=== PATIENT | male | born 1940 | race American Indian/Alaskan Native ===

== ENCOUNTER 2017-10-26 06:08 | Day surgery (SDC) | payer MEDICARE ==
[~2017-10-26 06:08] MED LIST: KENALOG-40 IM ONE; TETRACAINE 0.5% OD PRN
[2017-10-26] MEDS ORDERED: KENALOG-40 ONE (06:35)
[2017-10-26] MEDS: AK-Dilate OD SCH ×3 (06:40→07:01)
[2017-10-26] MEDS: VIGAMOX OD SCH ×3 (06:40→07:01)
[2017-10-26] MEDS: MYDRIACYL OD SCH ×3 (06:40→07:01)
[2017-10-26] MEDS ORDERED: SUBLIMAZE ONE (07:12)
[2017-10-26] MEDS ORDERED: VERSED ONE (07:13)
--- NOTE | 2017-10-26 07:58 | Anesthesia Consultation ---
Anesthesia Consult and Med Hx Date of service: 10/26/17 - Airway Anesthetic Teeth Evaluation: Good ROM Head & Neck: Adequate Mental/Hyoid Distance: Adequate Intubation Access Assessment: Probably Good - Pulmonary Exam CTA: Yes - Cardiac Exam Cardiac Exam: RRR - Pre-Operative Health Status ASA Pre-Surgery Classification: ASA4 Proposed Anesthetic Plan: MAC - Cardiovascular System Hx Hypertension: Yes (OVER 10 YEARS) - Central Nervous System Hx Psychiatric Problems: No - Other Systems Hx Alcohol Use: No Hx Substance Use: No Hx Cancer: No
[2017-10-26] MEDS ORDERED: PERCOCET 5/325 PO PRN (07:59)
--- NOTE | 2017-10-26 07:59 | Anesthesia Day of Surgery ---
Anesthesia Day of Surgery - Day of Surgery Patient Examined: Yes Patient H&P Reviewed: Yes Patient is NPO: Yes Beta Blockers: No Cardiac Clearance: No Pulmonary Clearance: No
[2017-10-26] MEDS ORDERED: DECADRON ONE (08:19)
[2017-10-26] MEDS ORDERED: XYLOCAINE 1% MPF 5 mL IJ ONE (08:22)
[2017-10-26] MEDS ORDERED: ADRENALINE P/F IV ONE (08:23)
[2017-10-26] MEDS ORDERED: VISCOAT IO ONE (08:40)
[2017-10-26] MEDS ORDERED: KENALOG-40 IM ONE (08:51)
[2017-10-26] MEDS ORDERED: MIOSTAT OD ONE (08:55)
[2017-10-26] MEDS ORDERED: PRED FORTE 1% OD SCH (10:00)
--- NOTE | 2017-10-26 10:01 | Operative Report ---
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 OPTO MECHANICAL ENGINEER SURGEON: None Lens: OA60 22.0 ANESTHESIA: Monitored anesthesia care in combination with topical and intracameral anesthesia because of the established specific risk of reflux, arrhythmias, or anxiety attacks associated with ocular manipulation, as well as the difficulty of the fire eater to manage such potentially catastrophic events while simultaneously attempting to complete the surgical procedure and was deemed necessary for the patient's safety to have an Hold Worker present during the procedure whenever possible. An Hold Worker was utilized to regulate the intravenous sedation of the patient so the patient was cooperative yet not asleep in order for the patient to successfully maintain fixation of the eye on the operating light of the microscope. COMPLICATIONS: No surgical complications No blood loss. ALLERGIES: N known drug allergies PROGNOSIS: Excellent INDICATIONS FOR SURGERY: The patient is undergoing surgery in the hopes of eliminating or improving these visual difficulties. PROCEDURE: After arriving at the surgery center, the patient was given topical anesthetic and dilating drops, as noted in the record. The patient was then taken into the operating room and given more anesthetic drops. The eyelids , lashes, and lid margins were scrubbed with Betadine solution, and the patient was draped. The Nurse Hold Worker administered IV sedation and monitored the patient during the procedure. The eye was then fixated with a 0.12, and a stab incision was made in the peripheral clear cornea into the anterior chamber. After these were made I started bleeding. This was made on my left side. Viscoelastic was next used to fill the anterior chamber. The eye was once again fixated with the 0.12 forceps and a keratome was used make an incision in clear cornea peripherally on my right hand side temporally. The eye was found to be very soft because of the presence of a tube shunt. The iris was synechaied to the anterior capsule of the lens, Crogan hook and Sinskey hook were used to break the synechiae. 1 1000 epinephrine was injected into the eye. The pupil remained at about 3 mm in size. Malugyan ring 6.25 mm was inserted. The capsule forceps were used to open the central anterior capsule and then make a continuous round capsulotomy. Hydrodissection was carried out utilizing a cannula and balanced salt solution to delineate the cortical material from the capsule and the nucleus from the cortical material. The phaco tip was introduced into the eye and used to remove the anterior cortical material in the area of the capsulotomy. Then the phaco tip was buried into the nucleus, and a chopping instrument was introduced into the eye and used to provide countertraction in the nucleus between this instrument and the phaco tip fracturing the nucleus. This procedure was repeated multiple times, providing multiple small segments of the lens, and then the phaco tip was used to remove each of these segments. An I/A tip was then used to remove the remaining cortex. The anterior chamber was refilled with viscoelastic. An one-piece, acrylic intraocular lens was then placed into an inserting cartridge. The tip of the inserting cartridge was introduced into the keratome incision and into the anterior chamber. The implant was gently advanced through the cartridge and into the eye, where it unfolded, and both haptics were placed in the capsular bag, where it centered nicely and appeared to be well fixated. After placement of the intraocular lens, the I~and~A handpiece was placed back into the eye and used to remove the viscoelastic, including viscoelastic that was behind the optic of the intraocular lens. The anterior chamber was then filled with balanced salt solution, and hydration of the wound was used to cause swelling of the wound and more appropriate watertight closure. A 10-0 nylon suture was placed, Miochol Kenalog were injected. When the wound was found to be firm, the patient was asked to comment on how bright the light was. If there was no light perception at all or if the light was substantially dimmer than during the rest of the surgery, the amount of fluid in the eye was decompressed to lower the intraocular pressure until the patient could see the bright light again. This was done to avoid any damage or decreased blood flow to the optic nerve. MEDICATIONS APPLIED AT END OF SURGERY: One drop of Pred Forte and Vigamox The patient was given a shield to wear at night and was instructed not to rub or push on the eye. DISCHARGE SUMMARY: The patient was released in stable condition. The patient and those with the patient were given a written sheet of postoperative instructions and counseling on any abnormal laboratory studies. The patient is to see us tomorrow for follow-up in the office and is to call immediately for any difficulties. Daisy Saavedra M.D. Date
--- NOTE | 2017-10-26 10:03 | Short Stay Summary ---
Short Stay Documentation Date of service: 10/26/17 - History H&P: obtained from office - Allergies and Medications Current Medications: Allergies No Known Allergies Allergy (Verified 10/25/17 10:35) Home Medications Medication Instructions Recorded Confirmed Last Taken Type Ascorbic Acid [Vitamin C] 500 mg PO QDAY 10/25/17 10/26/17 10/25/17 09:00 History Aspirin [Lo-Dose Aspirin EC] 81 mg PO DAILY 10/25/17 10/26/17 10/22/17 09:00 History Brimonidine/Timolol 0.2-0.5% 1 drop OP DAILY 10/25/17 10/26/17 10/25/17 09:00 History [Combigan 0.2-0.5%] Lycopene 10 mg PO DAILY 10/25/17 10/26/17 10/25/17 09:00 History Multivit-Mins/Iron/Folic/Lycop 1 each PO DAILY 10/25/17 10/26/17 10/25/17 09:00 History [Men Under 50 Multivitamin Tab] Rosuvastatin (Nf) [Crestor] 5 mg PO DAILY 10/25/17 10/26/17 10/25/17 09:00 History Telmisartan/Hydrochlorothiazid 1 each PO DAILY 10/25/17 10/26/17 10/25/17 09:00 History [Telmisartan-Hctz 80-12.5 mg Tb] Terazosin HCl 10 mg PO DAILY 10/25/17 10/26/17 10/25/17 20:00 History Active Medications Moxifloxacin HCl (Vigamox) 1 drops OD Q5MIN [facility] Stop: 10/28/17 06:01 Last Admin: 10/26/17 07:01 Dose: 1 drops Oxycodone/Acetaminophen (Percocet 5/325) 1 tab PO ONCE PRN PRN Reason: Pain, Moderate (4-6) Stop: 10/26/17 13:00 Phenylephrine HCl (Ak-Dilate) 1 drops OD Q5MIN [facility] Stop: 10/28/17 06:01 Last Admin: 10/26/17 07:01 Dose: 1 drops Prednisolone Acetate (Pred Forte 1%) 1 drops OD QID [facility] Stop: 10/26/17 12:00 Last Admin: 10/26/17 09:30 Dose: 1 drops Tetracaine HCl (Tetracaine 0.5%) 1 drops OD Q5M PRN PRN Reason: NUMBING DROP Last Admin: 10/26/17 06:40 Dose: 1 drops Tropicamide (Mydriacyl) 1 drops OD Q5MIN [facility] Stop: 10/28/17 06:01 Last Admin: 10/26/17 07:01 Dose: 1 drops - Brief post op/procedure progress note Date of procedure: 10/26/17 Pre-op diagnosis: inflammatory cataract posterior synechiae right eye Post-op diagnosis: same Procedure: Phacoemulsification with intraocular lens insertion Synechiolysis right eye Anesthesia: MAC, local Surgeon: FRANCES TORRES Estimated blood loss: minimal Condition: stable - Disposition Condition at discharge: Good Disposition: DC-01 TO HOME OR SELFCARE - Discharge Diagnoses (1) Cataract associated with other syndromes Status: Resolved (2) Posterior synechiae (iris), right eye Status: Resolved Short Stay Discharge Plan Follow up with: SARAN KEATING JR, MD [Primary Care Provider] - 7 Days Forms: Outpatient Surgery DC Inst.
[2017-10-26 14:46] VITALS: BP 141/79
--- NOTE | 2017-10-26 14:51 | Post Anesthesia Evaluation ---
- Post Anesthesia Evaluation Patient Participated: Yes Airway Patent: Yes Stable Respiratory Function: Yes Nausea/Vomiting: No Temp > 96.8F: Yes Pain Manageable: Yes Adequeate Hydration: Yes Anesthesia Complications: No Block Receding Appropriately: No Patient on Ventilator: No
== END 2017-10-26 09:50 | disposition home or self-care (01) ==
LOC: OR 06:08
DX: H26.8 Other specified cataract (principal); H21.541 Posterior synechiae (iris), right eye
CPT/HCPCS: 65870; 66982; J0171; J1100; J2250; J3010; J3301; V2632

== ENCOUNTER 2017-11-09 06:09 | Day surgery (SDC) | payer MEDICARE ==
[~2017-11-09 06:09] MED LIST changes: -KENALOG-40 IM ONE; -TETRACAINE 0.5% OD PRN; +TETRACAINE 0.5% OS PRN
[2017-11-09] MEDS ORDERED: NACL BACTERIOSTATIC INFILTRATI ONE (06:18)
[2017-11-09] MEDS: MYDRIACYL OS SCH ×3 (06:39→06:53)
[2017-11-09] MEDS: VIGAMOX OS SCH ×3 (06:39→06:53)
[2017-11-09] MEDS: AK-Dilate OS SCH ×3 (06:39→06:53)
[2017-11-09] MEDS ORDERED: VERSED ONE (07:15)
--- NOTE | 2017-11-09 07:32 | Anesthesia Consultation ---
Anesthesia Consult and Med Hx Date of service: 11/09/17 - Airway Anesthetic Teeth Evaluation: Poor ROM Head & Neck: Adequate Mental/Hyoid Distance: Adequate Mallampati Class: Class I Intubation Access Assessment: Good - Pulmonary Exam CTA: Yes - Cardiac Exam Cardiac Exam: RRR - Pre-Operative Health Status ASA Pre-Surgery Classification: ASA2 Proposed Anesthetic Plan: Local, MAC - Cardiovascular System Hx Hypertension: Yes (10 YEARS)
--- NOTE | 2017-11-09 07:52 | Anesthesia Day of Surgery ---
Anesthesia Day of Surgery - Day of Surgery Patient Examined: Yes Patient H&P Reviewed: Yes Patient is NPO: Yes
[2017-11-09] MEDS ORDERED: ADRENALINE P/F IV ONE (08:21)
--- NOTE | 2017-11-09 08:38 | Short Stay Summary ---
Short Stay Documentation Date of service: 11/09/17 - History H&P: obtained from office - Allergies and Medications Current Medications: Allergies No Known Allergies Allergy (Verified 11/03/17 12:40) Home Medications Medication Instructions Recorded Confirmed Last Taken Type Ascorbic Acid [Vitamin C] 500 mg PO QDAY 10/25/17 11/09/17 11/08/17 History Aspirin [Lo-Dose Aspirin EC] 81 mg PO DAILY 10/25/17 11/09/17 11/06/17 History Brimonidine/Timolol 0.2-0.5% 1 drop OP DAILY 10/25/17 11/03/17 11/08/17 History [Combigan 0.2-0.5%] Lycopene 10 mg PO DAILY 10/25/17 11/09/17 11/08/17 History Multivit-Mins/Iron/Folic/Lycop 1 each PO DAILY 10/25/17 11/09/17 11/06/17 History [Men Under 50 Multivitamin Tab] Rosuvastatin (Nf) [Crestor] 5 mg PO DAILY 10/25/17 11/03/17 11/08/17 History Telmisartan/Hydrochlorothiazid 1 each PO DAILY 10/25/17 11/03/17 11/08/17 History [Telmisartan-Hctz 80-12.5 mg Tb] Terazosin HCl 10 mg PO DAILY 10/25/17 11/03/17 11/08/17 History Calcium Carbonate [Calcium] 600 mg PO 1XW 11/09/17 11/09/17 11/06/17 History Cholecalciferol (Vitamin D3) 1,000 unit PO DAILY 11/09/17 11/09/17 11/08/17 History [Vitamin D3] Folic Acid [Folvite] 1 tab PO DAILY 11/09/17 11/09/17 11/08/17 History Methotrexate(Dose Weekly Only) 3 tab PO 1XW 11/09/17 11/09/17 11/04/17 History amLODIPine [Norvasc] 10 mg PO DAILY 11/09/17 11/09/17 11/08/17 History prednisoLONE ACETATE 1%(NF) [Pred 1 drop OU DAILY 11/09/17 11/09/17 11/08/17 History Forte 1%(Nf)] Active Medications Moxifloxacin HCl (Vigamox) 1 drops OS Q5MIN [facility] Stop: 11/11/17 06:01 Last Admin: 11/09/17 06:53 Dose: 1 drops Phenylephrine HCl (Ak-Dilate) 1 drops OS Q5MIN [facility] Stop: 11/11/17 06:01 Last Admin: 11/09/17 06:53 Dose: 1 drops Prednisolone Acetate (Pred Forte 1%) 1 drops OS QID [facility] Tetracaine HCl (Tetracaine 0.5%) 1 drops OS Q5M PRN PRN Reason: Anesthesia Last Admin: 11/09/17 06:38 Dose: 1 drops Tropicamide (Mydriacyl) 1 drops OS Q5MIN [facility] Stop: 11/11/17 06:01 Last Admin: 11/09/17 06:53 Dose: 1 drops - Brief post op/procedure progress note Date of procedure: 11/09/17 Pre-op diagnosis: inflammatory cataract left eye Post-op diagnosis: same Procedure: phaco iol os Anesthesia: MAC, local Surgeon: FRANCES TORRES Estimated blood loss: none Pathology: none Condition: stable - Disposition Condition at discharge: Good Disposition: DC-01 TO HOME OR SELFCARE - Discharge Diagnoses (1) Cataract associated with other syndromes Status: Resolved Short Stay Discharge Plan Follow up with: SARAN KEATING JR, MD [Primary Care Provider] - 7 Days
[2017-11-09] MEDS ORDERED: PRED FORTE 1% OS SCH (10:00)
--- NOTE | 2017-11-09 11:34 | Operative Report ---
Operative Report Operative Report: PATIENT'S NAME: DATE OF : DATE OF SURGERY: 11/09/2017 PREOPERATIVE DIAGNOSIS: Cataract left eye POSTOPERATIVE DIAGNOSIS: Same OPERATIVE PROCEDURE: Phacoemulsification with intraocular lens implantation, left eye SURGEON: Daisy Saavedra M.D. SENIOR BIOSTATISTICIAN/GROUP LEADER SURGEON: Anne Marie Lens: AO60 220. D ANESTHESIA: Monitored anesthesia care in combination with topical and intracameral anesthesia because of the established specific risk of reflux, arrhythmias, or anxiety attacks associated with ocular manipulation, as well as the difficulty of the glue specialty supervisor to manage such potentially catastrophic events while simultaneously attempting to complete the surgical procedure and was deemed necessary for the patient's safety to have an Camera Person present during the procedure whenever possible. An Camera Person was utilized to regulate the intravenous sedation of the patient so the patient was cooperative yet not asleep in order for the patient to successfully maintain fixation of the eye on the operating light of the microscope. COMPLICATIONS: No surgical complications No blood loss. ALLERGIES: N known drug allergies PROGNOSIS: Excellent INDICATIONS FOR SURGERY: The patient is undergoing surgery in the hopes of eliminating or improving these visual difficulties. PROCEDURE: After arriving at the surgery center, the patient was given topical anesthetic and dilating drops, as noted in the record. The patient was then taken into the operating room and given more anesthetic drops. The eyelids , lashes, and lid margins were scrubbed with Betadine solution, and the patient was draped. The Nurse Camera Person administered IV sedation and monitored the patient during the procedure. The eye was then fixated with a 0.12, and a stab incision was made in the peripheral clear cornea into the anterior chamber. This was made on my left side. Viscoelastic was next used to fill the anterior chamber. The eye was once again fixated with the 0.12 forceps and a keratome was used make an incision in clear cornea peripherally on my right hand side temporally. The capsule forceps were used to open the central anterior capsule and then make a continuous round capsulotomy. Hydrodissection was carried out utilizing a cannula and balanced salt solution to delineate the cortical material from the capsule and the nucleus from the cortical material. The phaco tip was introduced into the eye and used to remove the anterior cortical material in the area of the capsulotomy. Then the phaco tip was buried into the nucleus, and a chopping instrument was introduced into the eye and used to provide countertraction in the nucleus between this instrument and the phaco tip fracturing the nucleus. This procedure was repeated multiple times, providing multiple small segments of the lens, and then the phaco tip was used to remove each of these segments. An I/A tip was then used to remove the remaining cortex. The anterior chamber was refilled with viscoelastic. An one-piece, acrylic intraocular lens was then placed into an inserting cartridge. The tip of the inserting cartridge was introduced into the keratome incision and into the anterior chamber. The implant was gently advanced through the cartridge and into the eye, where it unfolded, and both haptics were placed in the capsular bag, where it centered nicely and appeared to be well fixated. After placement of the intraocular lens, the I~and~A handpiece was placed back into the eye and used to remove the viscoelastic, including viscoelastic that was behind the optic of the intraocular lens. The anterior chamber was then filled with balanced salt solution, and hydration of the wound was used to cause swelling of the wound and more appropriate watertight closure. When the wound was found to be firm, the patient was asked to comment on how bright the light was. If there was no light perception at all or if the light was substantially dimmer than during the rest of the surgery, the amount of fluid in the eye was decompressed to lower the intraocular pressure until the patient could see the bright light again. This was done to avoid any damage or decreased blood flow to the optic nerve. MEDICATIONS APPLIED AT END OF SURGERY: One drop of Pred Forte and Vigamox The patient was given a shield to wear at night and was instructed not to rub or push on the eye. DISCHARGE SUMMARY: The patient was released in stable condition. The patient and those with the patient were given a written sheet of postoperative instructions and counseling on any abnormal laboratory studies. The patient is to see us tomorrow for follow-up in the office and is to call immediately for any difficulties. Daisy Saavedra M.D. Date
[2017-11-09] MEDS ORDERED: ADRENALIN ONE (14:11)
[2017-11-09 17:12] VITALS: BP 135/75
== END 2017-11-09 09:40 | disposition home or self-care (01) ==
LOC: OR 06:09
DX: H26.8 Other specified cataract (principal); I10 Essential (primary) hypertension; E78.00 Pure hypercholesterolemia, unspecified; N40.0 Benign prostatic hyperplasia without lower urinary tract symptoms; Z79.82 Long term (current) use of aspirin; Z79.899 Other long term (current) drug therapy; Z98.890 Other specified postprocedural states
CPT/HCPCS: 66984; J0171; J2250; V2632